=== PATIENT | male | born 1945 | race Caucasian/White ===

== ENCOUNTER → 2019-10-23 06:00 | Outpatient (CLI) | payer OTHER ==
[~2019-10-23 06:00] MED LIST: ATORVASTATIN CA10 MG PO; COZAAR50 MG PO
== END | disposition home or self-care (01) ==
LOC: EKG 06:00 → ADM 10:30 → EDSTATUS 10-30 10:30 → EDBD 10-30 10:30 → CIR.AMB 10-30 10:30
DX: K64.2 Third degree hemorrhoids (principal); K62.5 Hemorrhage of anus and rectum; K62.89 Other specified diseases of anus and rectum; I10 Essential (primary) hypertension